=== PATIENT | male | born 1990 | race Caucasian/White ===

== ENCOUNTER 2021-12-07 14:40 | Emergency (ER) | payer OTHER ==
[~2021-12-07] VITALS: Ht 180.3 cm; Wt 102.1 kg
--- NOTE | 2021-12-07 14:43 | NUR ---
Dr Lee at the bedside for MSE.
[2021-12-07 15:09] LABS: HEMATOCRIT 48.5 % (36.7-47.1); MEAN CORPUSCULAR HEMOGLOBIN 30.7 uug (23.8-33.4); MEAN CORPUSCULAR VOLUME 88.6 fL (73.0-96.2); PLATELET COUNT (AUTO) 212 K/uL (152-348)
[2021-12-07 15:16] LABS: CREATININE 1.1 mg/dL (0.6-1.3); POTASSIUM 4.4 mmol/L (3.5-5.1)
--- NOTE | 2021-12-07 15:24 | NUR ---
Pt is resting in bed speaking on the phone, NAD noted, room air sat is 97%.
[2021-12-07] MEDS ORDERED: ALBU8.5H8 INH (15:28)
[2021-12-07 15:38] VITALS: BP 125/60
--- NOTE | 2021-12-07 15:40 | NUR ---
Patient discharged to home in stable condition. Written and verbal after care instructions given. Patient verbalizes understanding of instructions. Stressed follow up or return to ER for worsening s/s.
== END 2021-12-07 15:40 | disposition home or self-care (01) ==
LOC: ER 14:40
DX: R06.00 Dyspnea, unspecified (principal); R07.89 Other chest pain; Z87.09 Personal history of other diseases of the respiratory system
CPT/HCPCS: 36415; 70030-TC; 71045; 85025; 93005; A4663

== ENCOUNTER 2021-12-11 11:56 | Emergency (ER) | payer OTHER ==
[~2021-12-11] VITALS: Ht 180.3 cm; Wt 102.1 kg
[~2021-12-11 11:56] MED LIST: ALBU8.5H8 INH
[2021-12-11] MEDS ORDERED: BUDE180A INH (13:08)
--- NOTE | 2021-12-11 13:16 | NUR ---
Patient was seen by Dr Poole. DC, Rx and follow up instructions given and explained to patient who states he understands all instructions
== END 2021-12-11 13:18 | disposition home or self-care (01) ==
LOC: ER 11:56
DX: R05.9 Cough, unspecified (principal); J45.20 Mild intermittent asthma, uncomplicated
CPT/HCPCS: 71045; A4663

== ENCOUNTER 2022-01-04 19:00 | Emergency (ER) | payer OTHER ==
[~2022-01-04] VITALS: Ht 182.9 cm; Wt 102.1 kg
[~2022-01-04 19:00] MED LIST changes: +BUDE180A INH
[2022-01-04] MEDS ORDERED: ALBUTEROL SULFATE 2.5 MG/3 ML NEBU NEB ONE (19:15)
[2022-01-04] MEDS ORDERED: ALBUTEROL SULFATE 2.5 MG/3 ML NEBU ONE (19:40)
[2022-01-04] MEDS ORDERED: GUAI600T53 PO (21:56)
[2022-01-04] MEDS ORDERED: ALBU6.7H9 INH (21:56)
[2022-01-04] MEDS ORDERED: FLUT16SP16 BNOSTRILS (21:56)
[2022-01-05 03:00] VITALS: BP 128/80
== END 2022-01-04 22:00 | disposition home or self-care (01) ==
LOC: ER 19:03
DX: J20.9 Acute bronchitis, unspecified (principal); F17.200 Nicotine dependence, unspecified, uncomplicated; J45.909 Unspecified asthma, uncomplicated; R03.0 Elevated blood-pressure reading, without diagnosis of hypertension
CPT/HCPCS: 71045; A4663